=== PATIENT | female | born 1960 | race Caucasian/White ===

== ENCOUNTER → 2016-02-22 | Outpatient (CLI) | payer OTHER ==
--- NOTE | 2016-02-22 09:17 | DX ---
DEXA Bone Mineral Densitometry Clinical Indications: 55-year-old female who had a hysterectomy at age 32, and went through menopause at age 53. There is a family history of osteoporosis with a parent who had a fractured hip, and the patient been taking estrogen hormone replacement for 3 years, and also takes supplementary vitamin D. She participates in weightbearing and aerobic exercises 3-4 hours per week. Evaluate for estrogen de ficiency, and screen for osteoporosis. ICD 10 Diagnostic Codes: E78.5 and Z00.00. Comparison: None. Technique: Bone Mineral Densitometry (BMD) by Dual Energy X-Ray Absorptiometry (DEXA) was performed utilizing the [employer] scanner. The lumbar spine was evaluated in the AP projection. Both hips and the left forearm were evaluated in the AP projection. Vertebral fracture assessment was also per formed. A FRAX score was calculated. AP Lumbar Spine: The L1, L2, L3 and L4 vertebral bodies were evaluated. BMD: 1.150 gm/cm2 T-score: -0.4 SD Z-score: 0.5 SD AP Left Hip: Femoral Neck BMD: 0.899 gm/cm2 T-score: -1.0 SD Z-score: 0.1 SD AP Right Hip: Femoral Neck BMD: 0.892 gm/cm2 T-score: -1.1 SD* Z-score: 0.0 SD AP Left Forearm, /: BMD: 0.942 gm/cm2 T-score: 0.8 SD Z-score: 1.4 SD Vertebral Fracture Assessment: There is no significant fracture deformity. FRAX Score: The 10 year probability for any major osteoporotic fracture is 12.2%, and for a hip fract ure 0.3%. Conclusion: Considering the lowest measured site, the patient is mildly osteopenic* (low bone mineral density). Any bone loss in this patient is probably related to aging or estrogen deficiency. Recommendations: To prevent osteoporosis and to promote bone density, consider the following recommendations: 1. Continue to pursue a regular regimen of weightbearing and muscle-strengthening exercises in order to reduce the risk of falls and fracture (as tolerated by the patient's general medical condition). 2. Ensure that total daily calcium intake is at least 1500 mg (diet plus supplements). 3. Check serum hydroxy vitamin D3 (normal >30ng/ml). 4. Ensure daily intake of vitamin D is 800 international units. 5. Consider follow up DEXA scan in two years to assess the rate of bone loss in this patient.
== END ==
LOC: BRMIMAGING 08:24
PROVIDERS: ATTEND Family Medicine
DX: M85.80 Other specified disorders of bone density and structure, unspecified site (principal); Z79.890 Hormone replacement therapy; Z78.0 Asymptomatic menopausal state; Z82.62 Family history of osteoporosis

== ENCOUNTER → 2018-01-13 | Outpatient (CLI) | payer OTHER | LOC: FIMAGING 12:47 | PROVIDERS: ATTEND Family Medicine | DX: R92.8 Other abnormal and inconclusive findings on diagnostic imaging of breast (principal) ==

== ENCOUNTER → 2018-07-30 | Outpatient (CLI) | payer OTHER | LOC: FIMAGING 14:33 ==